=== PATIENT | female | born 2000 | race Two or more races ===

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

== ENCOUNTER 2021-03-08 16:17 | Emergency (ER) | payer SELFPAY ==
[~2021-03-08] VITALS: Ht 152.4 cm; Wt 63.5 kg
--- NOTE | 2021-03-08 17:05 | NUR ---
BIBS FOR VAGINAL DISCHARGE. DENIES PAIN. WILL CONTINUE TO MONITOR THE PATIENT.
[2021-03-08] MEDS ORDERED: DOXY-226 PO (17:17)
[2021-03-08] MEDS ORDERED: CEFTRIAXONE 500 MG VIAL IM ONE (17:30)
[2021-03-08] MEDS ORDERED: DOXYCYCLINE HYCLATE (100 MG) 100 MG TABLET PO ONE (17:30)
[2021-03-08] MEDS ORDERED: DOXYCYCLINE HYCLATE (100 MG) 100 MG TABLET ONE (17:42)
[2021-03-08] MEDS ORDERED: CEFTRIAXONE 500 MG VIAL ONE (17:42)
[2021-03-08 18:37] LABS: BILIRUBIN,URINE Negative (NEGATIVE); COLOR,URINE YELLOW (YELLOW); LEUKOCYTE ESTERASE ,URINE Moderate (NEGATIVE); NITRITE, URINE Negative (NEGATIVE); PH,URINE 6.5 (5.0-8.0); PROTEIN,URINE Negative (NEGATIVE); UGLUCOSE Negative (NEGATIVE); UROBILINOGEN,URINE 0.2 EU/dL (0.2)
[2021-03-08 18:44] LABS: BACTERIA,URINE 2+ /HPF (None Seen); SQUAMOUS EPITHELIAL CELL,UR Few /HPF (None Seen)
[2021-03-08 18:56] VITALS: BP 116/73
--- NOTE | 2021-03-08 18:56 | NUR ---
Patient discharged to home in stable condition. Written and verbal after care instructions given. Patient verbalizes understanding of instruction.
== END 2021-03-08 18:57 | disposition home or self-care (01) ==
LOC: ER 16:26
DX: Z20.2 Contact with and (suspected) exposure to infections with a predominantly sexual mode of transmission (principal); Z60.2 Problems related to living alone
CPT/HCPCS: 81001; 84703; 87077; 87086; 87186; 87491; 87591; 96372; 99283; J0696